=== PATIENT | male | born 1995 | race Caucasian/White ===

== ENCOUNTER 2017-02-13 14:09 | Emergency (ER) | payer OTHER ==
[2017-02-13 14:15] VITALS: RESP 16
[2017-02-13] MEDS ORDERED: ACETAMINOPHEN 325 MG TAB PO ONE (14:59)
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
[2017-02-13 15:41] VITALS: BP 118/96; PULSE 80; TEMP 98.4; O2SAT 96
== END 2017-02-13 15:39 | disposition home or self-care (01) ==
DX: S06.0X0A Concussion without loss of consciousness, initial encounter (principal); W22.8XXA Striking against or struck by other objects, initial encounter